=== PATIENT | male | born 1975 | race African-American/Black ===

== ENCOUNTER 2017-06-21 06:35 | Emergency (ER) | payer SELFPAY ==
[2017-06-21] MEDS ORDERED: OXYCODONE-ACETAMINOPHEN 5-325 MG TABLET PO ONE (07:31)
--- NOTE | 2017-06-21 08:00 | RADIOLOGY REPORT (SQ) ---
EXAM DESCRIPTION: TOE LEFT COMPLETED DATE/TIME: 06/21/2017 7:45 am REASON FOR STUDY: left 2nd toe injury COMPARISON: None. NUMBER OF VIEWS: Three views. TECHNIQUE: AP, lateral, and oblique images acquired of the left third toe. LIMITATIONS: None. FINDINGS: MINERALIZATION: Normal. BONES: Comminuted fracture extends through the left 3rd proximal phalangeal diaphysis with up to 0.2 cm distraction. No evidence of healing. JOINTS: No effusions. SOFT TISSUES: No soft tissue swelling. No foreign body. OTHER: No other significant finding. IMPRESSION: Comminuted fracture of the left 3rd proximal phalanx. COMMENT: SITE OF TRAUMA/COMPLAINT MARKED/STAMP COMPLETED: YES. TECHNICAL DOCUMENTATION: JOB ID: [id number] [employer]- All Rights Reserved
[2017-06-21] MEDS ORDERED: HYDROMORPHONE HCL INJ/PF 2 MG/ML AMPULE IM ONE (08:11)
--- NOTE | 2017-06-21 08:12 | ER Document Report ---
ED Extremity Problem, Lower - General Chief Complaint: Toe Injury Stated Complaint: TOE INJURY Time Seen by Provider: 06/21/17 07:17 Mode of Arrival: Ambulatory Information source: Patient Notes: Patient is a 41-year-old male who presents to the ER today this morning for stubbing his toe prior to arrival. Patient states that it is "bad." He admits to pain in that toe, third toe on the left foot. He denies any numbness or tingling. TRAVEL OUTSIDE OF THE [place] IN LAST 30 DAYS: No - Related Data Allergies/Adverse Reactions: Penicillins Allergy (Verified 06/21/17 06:36) Home Medications: Current Home Medications No Home Medications 06/21/17 [History] Past Medical History - General Information source: Patient - Social History Smoking Status: Current Every Day Smoker Chew tobacco use (# tins/day): No Frequency of alcohol use: Social Drug Abuse: None Family History: Reviewed & Not Pertinent Renal/ Medical History: Denies: Hx Peritoneal Dialysis - Immunizations Hx Diphtheria, Pertussis, Tetanus Vaccination: Yes Review of Systems - Review of Systems Constitutional: No symptoms reported EENT: No symptoms reported Cardiovascular: No symptoms reported Respiratory: No symptoms reported Gastrointestinal: No symptoms reported Genitourinary: No symptoms reported Male Genitourinary: No symptoms reported Musculoskeletal: See HPI Skin: No symptoms reported Hematologic/Lymphatic: No symptoms reported Neurological/Psychological: No symptoms reported Physical Exam - Vital signs Vitals: Temp Pulse Resp BP Pulse Ox 97.7 F 86 18 127/76 H 97 06/21/17 06:36 06/21/17 06:36 06/21/17 06:36 06/21/17 06:36 06/21/17 06:36 - Notes Notes: PHYSICAL EXAMINATION: GENERAL: Well-appearing and in no acute distress. HEAD: Atraumatic, normocephalic. EYES: Pupils equal round and reactive to light, extraocular movements intact, sclera anicteric, conjunctiva are normal. NECK: Normal range of motion, supple without lymphadenopathy LUNGS: CTAB and equal. No wheezes rales or rhonchi. HEART: Regular rate and rhythm without murmurs EXTREMITIES: laterally displaced 3rd digit on left foot, tender to palpation, otherwise Normal range of motion, no pitting edema. No cyanosis. NEUROLOGICAL: good pulses distally, good capillary refill to all extremities, Cranial nerves grossly intact. Normal sensory/motor exams. PSYCH: Normal mood, normal affect. SKIN: Warm, Dry, normal turgor, no ecchymoses, no edema Course - Re-evaluation Re-evalutation: 06/21/17 08:47 There is a comminuted fracture of the left third proximal phalanx, toe was ivy taped to the second toe and patient given crutches. - Vital Signs Vital signs: Temp Pulse Resp BP Pulse Ox 97.7 F 86 18 127/76 H 97 06/21/17 06:36 06/21/17 06:36 06/21/17 06:36 06/21/17 06:36 06/21/17 06:36 Discharge - Discharge Clinical Impression: Fracture of proximal phalanx of toe of left foot Condition: Stable Disposition: HOME, SELF-CARE Instructions: Fractured Toe ([facility]), Ivy Taping (toes) ([facility]) Additional Instructions: Return immediately for any new or worsening symptoms. Follow up with primary care provider, call tomorrow to make followup appointment. Forms: Return to Work
[2017-06-21] MEDS ORDERED: HYDROCODONE/ACETAMINOPHEN 5-325 MG 6 TAB/DSPK PO PRN (08:48)
[2017-06-21 09:04] VITALS: BP 105/55
== END 2017-06-21 09:04 | disposition home or self-care (01) ==
LOC: ER 06:35
DX: S92.512A Displaced fracture of proximal phalanx of left lesser toe(s), initial encounter for closed fracture (principal); W22.09XA Striking against other stationary object, initial encounter; F17.200 Nicotine dependence, unspecified, uncomplicated
CPT/HCPCS: 99283; 96372; 73660; J1170

== ENCOUNTER 2018-01-07 14:42 | Emergency (ER) | payer SELFPAY ==
[2018-01-07] MEDS ORDERED: IBUPROFEN 600 MG TABLET PO ONE (17:19)
--- NOTE | 2018-01-07 18:15 | RADIOLOGY REPORT (SQ) ---
EXAM DESCRIPTION: CHEST PA/LAT COMPLETED DATE/TIME: 01/07/2018 5:44 pm REASON FOR STUDY: fever/cough COMPARISON: None. EXAM PARAMETERS: NUMBER OF VIEWS: two views TECHNIQUE: Digital Frontal and Lateral radiographic views of the chest acquired. RADIATION DOSE: NA LIMITATIONS: none FINDINGS: LUNGS AND PLEURA: Left lower lobe consolidation. No large pleural effusion. Linear atele ctasis right lung base. MEDIASTINUM AND HILAR STRUCTURES: No masses or contour abnormalities. HEART AND VASCULAR STRUCTURES: Heart normal size. No evidence for failure. BONES: No acute findings. HARDWARE: None in the chest. OTHER: No other significant finding. IMPRESSION: Left lower lobe consolidation concerning for pneumonia. TECHNICAL DOCUMENTATION: JOB ID: [id number] [employer]- All Rights Reserved
[2018-01-07 18:25] LABS: APPEARANCE,URINE CLEAR; BILIRUBIN,URINE NEGATIVE (NEGATIVE); COLOR,URINE YELLOW; GLUCOSE, URINE NEGATIVE (NEGATIVE); KETONES,URINE NEGATIVE (NEGATIVE); LEUKOCYTE ESTERASE,URINE NEGATIVE (NEGATIVE); NITRITE,URINE NEGATIVE (NEGATIVE); PROTEIN,URINE 100 mg/dL (NEGATIVE); URINE SPECIFIC GRAVITY 1.006
[2018-01-07] MEDS ORDERED: ACETAMINOPHEN 325 MG TABLET PO ONE (19:13)
[2018-01-07] MEDS ORDERED: NORMAL SALINE 1000 ML 1,000 ML IV ONE (19:13)
[2018-01-07] MEDS ORDERED: AZITHROMYCIN 250 MG TABLET PO ONE ×2 (19:15→22:52)
--- NOTE | 2018-01-07 19:17 | ER Document Report ---
ED Medical Screen (RME) - General Chief Complaint: Flu Symptoms Stated Complaint: WEAKNESS Time Seen by Provider: 01/07/18 17:18 Notes: one week of flu like sx's with cough and sob TRAVEL OUTSIDE OF THE [place] IN LAST 30 DAYS: No - Related Data Allergies/Adverse Reactions: Penicillins Allergy (Verified 01/07/18 15:28) Past Medical History - Social History Chew tobacco use (# tins/day): No Frequency of alcohol use: Rare Drug Abuse: Marijuana Renal/ Medical History: Denies: Hx Peritoneal Dialysis - Immunizations Hx Diphtheria, Pertussis, Tetanus Vaccination: Yes Physical Exam - Vital signs Vitals: Temp Pulse Resp BP Pulse Ox 100.2 F 116 H 20 119/74 95 01/07/18 15:19 01/07/18 15:19 01/07/18 15:19 01/07/18 15:19 01/07/18 15:19 Course - Vital Signs Vital signs: Temp Pulse Resp BP Pulse Ox 100.2 F 116 H 20 119/74 95 01/07/18 15:19 01/07/18 15:19 01/07/18 15:19 01/07/18 15:19 01/07/18 15:19 - Laboratory Laboratory results interpreted by me: 01/07/18 18:07 Urine Protein 100 H Urine Blood SMALL H Urine Urobilinogen 4.0 H
[2018-01-07] MEDS ORDERED: CEFTRIAXONE INJ 1000 MG VIAL IV ONE (20:28)
[2018-01-07 21:14] LABS: VENOUS BLOOD BASE EXCESS 3.7 mmol/L; VENOUS BLOOD PCO2 41.1 mmHg (35-63); VENOUS BLOOD PH 7.45 (7.30-7.42)
[2018-01-07 21:16] LABS: ABSOLUTE LYMPHOCYTES (AUTO) 2.9 10^3/uL (0.5-4.7); ABSOLUTE MONOCYTES (AUTO) 0.5 10^3/uL (0.1-1.4); ABSOLUTE NEUT (AUTO) 6.8 10^3/uL (1.7-8.2); BASOPHILS % (AUTO) 0.1 % (0-2); LYMPHOCYTES % (AUTO) 28.4 % (13-45); MEAN CORPUSCULAR HEMOGLOBIN 28.9 pg (27.0-33.4); MEAN CORPUSCULAR HGB CONC 34.2 g/dL (32.0-36.0); MEAN CORPUSCULAR VOLUME 84 fl (80-97); MONOCYTES % (AUTO) 5.2 % (3-13); PLATELET COUNT 161 10^3/uL (150-450); RED BLOOD COUNT 4.51 10^6/uL (4.35-5.55); RED CELL DISTRIBUTION WIDTH 14.6 % (11.5-14.0); SEGMENTED NEUTROPHILS % (AUTO) 66.3 % (42-78); TOTAL CELLS COUNTED % (AUTO) 100 %; WHITE BLOOD COUNT 10.3 10^3/uL (4.0-10.5)
[2018-01-07 21:36] LABS: ANION GAP 11 (5-19); BLOOD UREA NITROGEN 10 mg/dL (7-20); CALCIUM 9.4 mg/dL (8.4-10.2); CARBON DIOXIDE 26 mmol/L (22-30); CHLORIDE 95 mmol/L (98-107); GLUCOSE 93 mg/dL (75-110); POTASSIUM 3.7 mmol/L (3.6-5.0); SODIUM 131.5 mmol/L (137-145)
[2018-01-07] MEDS ORDERED: CEPHALEXIN 500 MG CAPSULE PO ONE (22:52)
--- NOTE | 2018-01-07 22:55 | ER Document Report ---
ED General - General Chief Complaint: Flu Symptoms Stated Complaint: WEAKNESS Time Seen by Provider: 01/07/18 17:18 Notes: Patient is a 42-year-old male current everyday tobacco user, no past medical history who presents with 3-4 days of fever, body aches, generalized weakness, and persistent cough with associated sputum production. Patient states that his symptoms were gradual in onset and have gotten progressively worse since that time. Nothing improves or worsens his symptoms. He denies any history of similar symptoms in the past. He does not have a primary care physician with whom he can follow-up for this issue. He denies any vomiting, diarrhea, headache, neck pain or altered mental status. He denies any shortness of breath. TRAVEL OUTSIDE OF THE [place] IN LAST 30 DAYS: No - Related Data Allergies/Adverse Reactions: Penicillins Allergy (Verified 01/07/18 15:28) Past Medical History - General Information source: Patient - Social History Smoking Status: Current Every Day Smoker Chew tobacco use (# tins/day): No Frequency of alcohol use: Rare Drug Abuse: Marijuana Lives with: Alone Family History: Reviewed & Not Pertinent Patient has suicidal ideation: No Patient has homicidal ideation: No Renal/ Medical History: Denies: Hx Peritoneal Dialysis - Immunizations Hx Diphtheria, Pertussis, Tetanus Vaccination: Yes Review of Systems - Review of Systems Notes: Constitutional: Positive for fever. HENT: Negative for sore throat. Eyes: Negative for visual changes. Cardiovascular: Negative for chest pain. Respiratory: Positive for cough Gastrointestinal: Negative for abdominal pain, vomiting or diarrhea. Genitourinary: Negative for dysuria. Musculoskeletal: Negative for back pain. Skin: Negative for rash. Neurological: Negative for headaches, weakness or numbness. 10 point ROS negative except as marked above and in HPI. Physical Exam - Vital signs Vitals: Temp Pulse Resp BP Pulse Ox 100.2 F 116 H 20 119/74 95 01/07/18 15:19 01/07/18 15:19 01/07/18 15:19 01/07/18 15:19 01/07/18 15:19 Interpretation: Tachycardic Notes: PHYSICAL EXAMINATION: GENERAL: Well-appearing, well-nourished and in no acute distress. HEAD: Atraumatic, normocephalic. EYES: Pupils equal round and reactive to light, extraocular movements intact, sclera anicteric, conjunctiva are normal. ENT: nares patent, oropharynx clear without exudates. Moderately dry mucous membranes. NECK: Normal range of motion, supple without lymphadenopathy LUNGS: Moderately diminished at the left base otherwise equal in all lung quick. No distress. No tachypnea. HEART: Regular rate and rhythm without murmurs ABDOMEN: Soft, nontender, normoactive bowel sounds. No guarding, no rebound. No masses appreciated. EXTREMITIES: Normal range of motion, no pitting or edema. No cyanosis. NEUROLOGICAL: No focal neurological deficits. Moves all extremities spontaneously and on command. PSYCH: Normal mood, normal affect. SKIN: Warm, Dry, normal turgor, no rashes or lesions noted. Course - Re-evaluation Re-evalutation: 01/07/18 22:54 Patient presents with a left lower lobe pneumonia but is otherwise very well in appearance, vitals within normal limits. Curb 65 score is 0. Labs overall unremarkable. He is not hypoxic, tachypnea, tachycardic and is able to tolerate oral intake without any difficulty. History and exam are not consistent with acute pulmonary embolus, acute influenza, or ACS. Patient does not have access to insurance and is penicillin allergic. He will therefore be started on both azithromycin and cephalexin for coverage of atypicals and strep. He is in agreement with discharge home. At this time will discharge with return precautions and follow-up recommendations. Verbal discharge instructions given a the bedside and opportunity for questions given. Medication warnings reviewed. Patient is in agreement with this plan and has verbalized understanding of return precautions and the need for primary care follow-up in the next 24-72 hours. - Vital Signs Vital signs: Temp Pulse Resp BP Pulse Ox 98.8 F 87 18 114/80 98 01/07/18 23:09 01/07/18 23:09 01/07/18 23:09 01/07/18 23:09 01/07/18 23:09 - Laboratory Result Diagrams: 01/07/18 20:55 01/07/18 20:55 Laboratory results interpreted by me: 01/07/18 01/07/18 01/07/18 18:07 20:55 20:55 Hgb 13.0 L RDW 14.6 H VBG pH 7.45 H Sodium Chloride Urine Protein 100 H Urine Blood SMALL H Urine Urobilinogen 4.0 H 01/07/18 20:55 Hgb RDW VBG pH Sodium 131.5 L Chloride 95 L Urine Protein Urine Blood Urine Urobilinogen - Diagnostic Test Radiology reviewed: Image reviewed, Reports reviewed Radiology results interpreted by me: 01/08/18 04:18 Chest x-ray: Left lower lobe pneumonia Discharge - Discharge Clinical Impression: Left lower lobe pneumonia Qualifiers: Pneumonia type: due to unspecified organism Qualified Code(s): J18.1 - Lobar pneumonia, unspecified organism Condition: Good Disposition: HOME, SELF-CARE Additional Instructions: You have been diagnosed with a pneumonia. It is very important that you take all of your antibiotics until they are gone even if you are feeling better. Please return to the emergency department immediately if you began having worsening shortness of breath, become confused, have worsening pain, pass out, have persistent vomiting that prevents you from being able to drink fluids for more than 12 hours, or have any other symptoms that are worrisome to you. Please follow-up with your primary care doctor in the next 1-2 days. Prescriptions: Azithromycin 250 mg PO DAILY #4 tablet Cephalexin Monohydrate [Keflex 500 mg Capsule] 500 mg PO QID #20 capsule
[2018-01-07 23:10] VITALS: BP 114/80
[2018-01-08] MEDS ORDERED: CEFTRIAXONE 2 GM/D5W RTU 2 GM/50 ML RTUPB IV SCH (10:00)
== END 2018-01-07 23:09 | disposition home or self-care (01) ==
LOC: ER 14:42
DX: J18.1 Lobar pneumonia, unspecified organism (principal); R53.1 Weakness; M79.0 Rheumatism, unspecified; R50.9 Fever, unspecified; F17.200 Nicotine dependence, unspecified, uncomplicated; Z88.0 Allergy status to penicillin
CPT/HCPCS: 36415; 71046; 80048; 81001; 82803; 83605; 85025; 99284